=== PATIENT | female | born 1990 | race African-American/Black ===

== ENCOUNTER 2018-12-18 09:08 | Emergency (ER) | payer OTHER ==
[2018-12-18 09:18] VITALS: BP 133/94; PULSE 98; TEMP 98.4; BMI 56.4
[2018-12-18] MEDS ORDERED: ACETAMINOPHEN 1000 MG/100 ML VIAL (NON FORMULARY) IVPB ONE (09:50)
[2018-12-18] MEDS ORDERED: methylPREDNISolone NA SUCC 125 MG/2 ML VIAL IVPB ONE (09:50)
[2018-12-18] MEDS ORDERED: ALBUTEROL SO4 2.5/IPRATROPIUM 0.5 INH SOL 3 ML VIAL.NEB. NEB ONE ×3 (09:54→11:45)
[2018-12-18] MEDS ORDERED: ACETAMINOPHEN INJECTION 100 ML IVPB ONE (09:54)
[2018-12-18] MEDS ORDERED: methylPREDNISolone NA SUCC 125 MG/2 ML VIAL ONE (09:55)
[2018-12-18 10:13] LABS: BASO % 0.6 % (0-2.0); HEMATOCRIT 32.5 % (32.4-45.2); HEMOGLOBIN 10.3 GM/dL (10.7-15.3); LYMPH % 14.5 % (8-40); MCHC 31.9 g/dl (32.0-36.0); MEAN CELL VOLUME 69.1 fl (80-96); MEAN PLT VOLUME 8.8 fl (7.5-11.1); MONO % 7.4 % (3.8-10.2); NEUT % 75.5 % (42.8-82.8); PLATELET COUNT 255 K/MM3 (134-434); RDW 16.4 % (11.6-15.6)
[2018-12-18] MEDS: ALBUTEROL SO4 2.5/IPRATROPIUM 0.5 INH SOL 3 ML VIAL.NEB. NEB SCH ×2 (10:13→10:55)
[2018-12-18 10:38] LABS: BLOOD UREA NITROGEN 10 mg/dL (7-18); CHLORIDE 106 mmol/L (98-107); CO2 25 mmol/L (21-32); CREATININE 0.7 mg/dL (0.55-1.3); GLUCOSE,RANDOM 105 mg/dL (74-106); POTASSIUM 3.7 mmol/L (3.5-5.1); SODIUM 139 mmol/L (136-145)
[2018-12-18 10:39] LABS: ALBUMIN 3.3 g/dl (3.4-5.0); ALK PHOS 90 U/L (45-117); ANION GAP 8 MMOL/L (8-16); BILIRUBIN,TOTAL < 0.1 mg/dL (0.2-1); CALCIUM 8.5 mg/dL (8.5-10.1); SGOT/AST 10 U/L (15-37); SGPT/ALT 19 U/L (13-61); TOT PROT 6.9 g/dl (6.4-8.2)
--- NOTE | 2018-12-18 10:40 | PDOC ---
History of Present Illness - General Chief Complaint: Respiratory Stated Complaint: CHEST PAIN Time Seen by Provider: 12/18/18 09:28 - History of Present Illness Initial Comments: 12/18/18 10:31 28 F with h/o asthma, HTN presenting to ED with 3 days of chest pain and cough. Pt states that she feels like she is having an asthma flare. Endorses midsternal chest pressure than radiates to both sides when she coughs. Pt denies any F/C. She reports using her albuterol nebulizer at home with minimal relief. Pt went to [facility] 2 days ago and was given 2 nebulizer treatments and discharged. Has not taken any steroids. Pt is current smoker. Denies any FH of early ID. Denies leg swelling or recent immobilization/travel. No h/o DVT. Not on OCPs. Past History - Past Medical History Allergies/Adverse Reactions: Allergies Allergy/AdvReac Type Severity Reaction Status Date / Time No Known Allergies Allergy Verified 02/24/12 11:33 Home Medications: Ambulatory Orders Prednisone [Prednisone 50 MG TABLETS] 50 mg PO DAILY #4 tablet 12/18/18 Asthma: Yes COPD: No HTN: Yes - Surgical History Cholecystectomy: No - Immunization History Immunization Up to Date: No - Suicide/Smoking/Psychosocial Hx Smoking Status: Yes Smoking History: Current every day smoker Have you smoked in the past 12 months: Yes Number of Cigarettes Smoked Daily: 12 Information on smoking cessation initiated: No Hx Alcohol Use: No Drug/Substance Use Hx: No Review of Systems - Review of Systems Comments:: 12/18/18 10:40 GENERAL/CONSTITUTIONAL: No fever or chills. No weakness. HEAD, EYES, EARS, NOSE AND THROAT: No change in vision. No ear pain or discharge. No sore throat. CARDIOVASCULAR: + chest pain, + shortness of breath, no loss of consciousness RESPIRATORY: + cough, + wheezing, no hemoptysis. GASTROINTESTINAL: No nausea, vomiting, diarrhea or constipation. GENITOURINARY: No dysuria, frequency, or change in urination. MUSCULOSKELETAL: No joint or muscle swelling or pain. No neck or back pain. SKIN: No rash NEUROLOGIC: No vertigo, no change in strength/sensation. ENDOCRINE: No increased thirst. No abnormal weight change. HEMATOLOGIC/LYMPHATIC: No anemia, easy bleeding, or history of blood clots. ALLERGIC/IMMUNOLOGIC: No hives or skin allergy. *Physical Exam - Vital Signs Last Vital Signs Temp Pulse Resp BP Pulse Ox 98.4 F 98 H 22 H 133/94 99 12/18/18 09:15 12/18/18 09:15 12/18/18 09:15 12/18/18 09:15 12/18/18 09:15 - Physical Exam Comments: 12/18/18 10:40 "GENERAL: Awake, alert, and fully oriented, in no acute distress. HEAD: No signs of trauma EYES: PERRLA, EOMI, sclera anicteric, conjunctiva clear ENT: Auricles normal inspection, hearing grossly normal, nares patent, oropharynx clear without exudates. Moist mucosa NECK: Nontender, no stepoffs, Normal ROM, supple, no lymphadenopathy, JVD, or masses LUNGS: + poor air movement, + expiratory wheezes HEART: Regular rate and rhythm, normal S1 and S2, no murmurs, rubs or gallops ABDOMEN: Soft, nontender, normoactive bowel sounds. No guarding, no rebound. No masses EXTREMITIES: Normal range of motion, no edema. No clubbing or cyanosis. No cords, erythema, or tenderness NEUROLOGICAL: Cranial nerves II through XII intact. 5/5 strength and sensation in all extremities, Normal speech, normal gait, normal cerebellar function SKIN: Warm, Dry, normal turgor, no rashes or lesions noted. Heart Score/ECG Review - History History: Slightly suspicious - Electrocardiogram EKG: Normal - Age Age: </= 45 - Risk Factors Risk Factors Heart Score: Yes Hx Hypertension, Yes Hx Obesity Based on the list above the patient has:: 1-2 risk factors - Troponin Troponin: </= normal limit - Score Heart Score - Total: 1 - ECG Impressions Comment:: 12/18/18 10:40 Sinus tach, no AMANDA/STDs, no TWIs, axis wnl, intervals wnl, rate 102 ED Treatment Course - LABORATORY CBC & Chemistry Diagram: 12/18/18 10:00 12/18/18 10:00 - ADDITIONAL ORDERS Additional order review: Laboratory Results 12/18/18 10:00 D-Dimer < 215 12/18/18 10:00 RBC 4.70 MCV 69.1 L MCHC 31.9 L RDW 16.4 H MPV 8.8 Neutrophils % 75.5 Lymphocytes % 14.5 Monocytes % 7.4 Eosinophils % 2.0 Basophils % 0.6 - RADIOLOGY Radiology Studies Ordered: Category Date Time Status CHEST PA & LAT [RAD] Stat Radiology 12/18/18 09:49 Ordered - Medications Given in the ED: ED Medications Discontinued Medications Generic Name Dose Route Start Last Admin Trade Name Venessa PRN Reason Stop Dose Admin Acetaminophen 1,000 mg 12/18/18 09:50 12/18/18 10:13 Ofirmev Injection - IVPB 12/18/18 09:51 1,000 mg ONCE ONE Administration Methylprednisolone Sodium Succinate 125 mg 12/18/18 09:50 12/18/18 10:13 Solu-Medrol - IVPB 12/18/18 09:51 125 mg ONCE ONE Administration Medical Decision Making - Medical Decision Making 12/18/18 10:41 28 F with chest pain, SOB, and cough. Suspect asthma flare given poor air movement and wheezing on exam. Pt mildly tachycardic, so will r/o PE with ddimer. EKG with no ischemic changes but will r/o ACS with trop. - Labs, trop, ddimer - CXR - Nebs, steroids, tylenol - reassess 12/18/18 12:29 Labs wnl, trop and dimer negative CXR clear Pt reassessed - lungs clear with better aeration RR now 18, satting 100% on RA Pt states that her chest pain and SOB have resolved Pt is well appearing, with normal vitals. Clinically stable for DC at this time. I discussed the physical exam findings, ancillary test results and final diagnoses with the patient. I answered all of the patient's questions. The patient was satisfied with the care received and felt comfortable with the discharge plan and treatment plan. The patient agrees to follow up with the primary care physician within 24-72 hours. *DC/Admit/Observation/Transfer Diagnosis at time of Disposition: Asthma - Discharge Dispostion Disposition: HOME Condition at time of disposition: Stable - Prescriptions Prescriptions: Prednisone [Prednisone 50 MG TABLETS] 50 mg PO DAILY #4 tablet - Referrals - Patient Instructions Printed Discharge Instructions: DI for Asthma -- Adult Additional Instructions: Take the prednisone once daily starting tomorrow for 4 days. Use your nebulizer every 4 hours as needed for coughing and shortness of breath. If you experience worsening chest pain, shortness of breath, fevers, or any other concerning symptoms, return to the ER immediately. Otherwise, follow up with your primary doctor within 2 days. - Post Discharge Activity - Attestations Physician Attestion: 12/18/18 12:32 I, Dr. Baljit Millard MD, attest that this document has been prepared under my direction and personally reviewed by me in its entirety. I further attest, that it accurately reflects all work, treatment, procedures and medical decision -making performed by me.
[2018-12-18] MEDS ORDERED: KETOROLAC TROMETHAMINE 30 MG/1 ML VIAL IVPUSH ONE (11:27)
[2018-12-18] MEDS ORDERED: MAGNESIUM SULF 50% (8.12 MEQ/2 ML-1 GM VIAL) IVPB ONE (11:28)
[2018-12-18] MEDS ORDERED: SODIUM CHLORIDE 1,000 ML IV STA (11:28)
[2018-12-18] MEDS ORDERED: ALBUTEROL SO4 2.5/IPRATROPIUM 0.5 INH SOL 3 ML VIAL.NEB. NEB SCH (11:30)
[2018-12-18] MEDS ORDERED: KETOROLAC TROMETHAMINE 30 MG/1 ML VIAL ONE (11:46)
[2018-12-18] MEDS ORDERED: MAGNESIUM SULF 50% (8.12 MEQ/2 ML-1 GM VIAL) ONE (11:46)
[2018-12-18 12:03] LABS: ANISOCYTOSIS 1+; MACROCYTOSIS 0; PLATELET ESTIMATE NORMAL
--- NOTE | 2018-12-18 13:52 | EKG ---
Test Reason : Blood Pressure : / mmHG Vent. Rate : 102 BPM Atrial Rate : 102 BPM P-R Int : 126 ms QRS Dur : 080 ms QT Int : 354 ms P-R-T Axes : 053 068 042 degrees QTc Int : 461 ms SINUS TACHYCARDIA OTHERWISE NORMAL ECG WHEN COMPARED WITH ECG OF 03-JUL-2007 17:25, NO SIGNIFICANT CHANGE WAS FOUND Confirmed by Gulshan Clifton MD ([id number]) on 12/18/2018 1:52:01 PM Referred By: Confirmed By:Gulshan Clifton MD
== END 2018-12-18 12:45 | disposition home or self-care (01) ==
LOC: JER 09:08
PROC: 3E033NZ Introduction of Analgesics, Hypnotics, Sedatives into Peripheral Vein, Percutaneous Approach (ICD-10-PCS; principal; 2018-12-18)
PROC: 3E033GC Introduction of Other Therapeutic Substance into Peripheral Vein, Percutaneous Approach (ICD-10-PCS; 2018-12-18)
PROC: 3E0333Z Introduction of Anti-inflammatory into Peripheral Vein, Percutaneous Approach (ICD-10-PCS; 2018-12-18)
PROC: 3E0333Z Introduction of Anti-inflammatory into Peripheral Vein, Percutaneous Approach (ICD-10-PCS; 2018-12-18)
PROC: 3E0F7GC Introduction of Other Therapeutic Substance into Respiratory Tract, Via Natural or Artificial Opening (ICD-10-PCS; 2018-12-18)
PROC: 3E0F7GC Introduction of Other Therapeutic Substance into Respiratory Tract, Via Natural or Artificial Opening (ICD-10-PCS; 2018-12-18)
DX: J45.909 Unspecified asthma, uncomplicated (principal); I10 Essential (primary) hypertension; F17.210 Nicotine dependence, cigarettes, uncomplicated
CPT/HCPCS: 36415; 71046-TC-FY; 80053; 82550; 84484; 84703; 85025; 85379; 93005; 93010; 94640; 96374; 96375; 99282-25; J0131; J7030